=== PATIENT | male | born 1995 | race Caucasian/White ===

== ENCOUNTER 2017-10-02 22:32 | Emergency (ER) | payer MEDICAID ==
[~2017-10-02] VITALS: Ht 165.1 cm; Wt 55.3 kg
[2017-10-03 02:31] VITALS: BP 135/89
== END 2017-10-03 02:32 | disposition home or self-care (01) ==
LOC: ED 22:32
DX: B07.8 Other viral warts (principal); A54.9 Gonococcal infection, unspecified
CPT/HCPCS: 87491; 87591; J0696; J1885; J2001; Q0162

== ENCOUNTER 2017-10-05 00:06 | Emergency (ER) | payer MEDICAID ==
[~2017-10-05] VITALS: Ht 152.4 cm; Wt 55.3 kg
[2017-10-05 00:15] VITALS: Ht 152.4 cm; Wt 55.3 kg
[2017-10-05 01:18] VITALS: BP 133/80
== END 2017-10-05 01:18 | disposition home or self-care (01) ==
LOC: ED 00:06
DX: F45.8 Other somatoform disorders (principal); R00.2 Palpitations

== ENCOUNTER 2017-10-13 12:31 | Emergency (ER) | payer MEDICAID ==
[~2017-10-13] VITALS: Ht 165.1 cm; Wt 54.1 kg
[2017-10-13 12:37] VITALS: Ht 165.1 cm; Wt 54.1 kg
[2017-10-13 14:11] VITALS: BP 120/64
== END 2017-10-13 14:11 | disposition home or self-care (01) ==
LOC: ED 12:31
DX: K62.5 Hemorrhage of anus and rectum (principal); F32.9 Major depressive disorder, single episode, unspecified; F41.8 Other specified anxiety disorders

== ENCOUNTER 2018-07-02 18:57 | Emergency (ER) | payer MEDICAID ==
[~2018-07-02] VITALS: Ht 165.1 cm; Wt 70.8 kg
[2018-07-02 19:53] VITALS: Ht 165.1 cm; Wt 70.8 kg
[2018-07-02 22:54] VITALS: BP 136/81
== END 2018-07-02 22:54 | disposition home or self-care (01) ==
LOC: ED 18:57
PROVIDERS: Emergency Medicine
DX: J11.1 Influenza due to unidentified influenza virus with other respiratory manifestations (principal); F41.9 Anxiety disorder, unspecified; F32.9 Major depressive disorder, single episode, unspecified; F12.90 Cannabis use, unspecified, uncomplicated
CPT/HCPCS: 86694; 87491; 87591; 87804; Q0162

== ENCOUNTER 2018-09-17 17:58 | Emergency (ER) | payer MEDICAID ==
[~2018-09-17] VITALS: Ht 167.6 cm; Wt 71.7 kg
[2018-09-17 18:14] VITALS: Ht 167.6 cm; Wt 71.7 kg
[2018-09-17 20:22] LABS: BASOPHIL % 0.2 % (0-2); PLATELET COUNT 245 x10^3mcL (130-400); RED CELL DISTRIBUTION WIDTH 13.1 % (11.5-14.5)
[2018-09-17 20:31] LABS: CALCIUM 9.4 mg/dL (8.5-10.1); CARBON DIOXIDE 27.6 mmol/L (21-32); CHLORIDE SERUM 102 mmol/L (98-107); CREATININE SERUM 1.2 mg/dL (0.7-1.3); GFR1 > 60 mL/min; GLUCOSE SERUM 97 mg/dL (74-106); POTASSIUM SERUM 3.9 mmol/L (3.5-5.1); SODIUM SERUM 140 mmol/L (136-145)
[2018-09-17 20:36] LABS: ALBUMIN 4.8 g/dL (3.4-5.0); ALKALINE PHOSPHATASE 179 U/L (46-116); ALT/SGPT 30 U/L (16-63); AST/SGOT 20 U/L (15-37); BILIRUBIN TOTAL 0.59 mg/dL (0.20-1.00); TOTAL PROTEIN, SERUM 8.3 g/dL (6.4-8.2)
[2018-09-17 21:27] VITALS: BP 135/84
[2018-09-19 06:08] LABS: RAPID PLASMA REAGIN Non Reactive (Non Reactive)
== END 2018-09-17 21:27 | disposition home or self-care (01) ==
LOC: ED 17:58
PROVIDERS: Emergency Medicine
DX: R51 Headache (principal); F32.9 Major depressive disorder, single episode, unspecified; F41.9 Anxiety disorder, unspecified; F12.90 Cannabis use, unspecified, uncomplicated
CPT/HCPCS: 36415; 87491; 87591

== ENCOUNTER 2019-01-07 15:32 | Emergency (ER) | payer MEDICAID ==
[~2019-01-07] VITALS: Ht 167.6 cm; Wt 72.6 kg
[2019-01-07 15:34] VITALS: Ht 167.6 cm; Wt 72.6 kg
[2019-01-07 16:13] LABS: microscopic required? YES; urine erythrocyte NEGATIVE (NEGATIVE)
[2019-01-07 16:19] LABS: BASOPHIL % 0.3 % (0-2); PLATELET COUNT 302 x10^3mcL (130-400); RED CELL DISTRIBUTION WIDTH 13.5 % (11.5-14.5)
[2019-01-07 16:23] LABS: CALCIUM 8.1 mg/dL (8.5-10.1); CARBON DIOXIDE 23.8 mmol/L (21-32); CHLORIDE SERUM 104 mmol/L (98-107); CREATININE SERUM 1.1 mg/dL (0.7-1.3); GFR1 > 60 mL/min; GLUCOSE SERUM 114 mg/dL (74-106); POTASSIUM SERUM 3.7 mmol/L (3.5-5.1); SODIUM SERUM 139 mmol/L (136-145)
[2019-01-07 16:25] LABS: AMPHETAMINE QUAL UR NONE DETECTED (See below)
[2019-01-07 16:29] LABS: ALBUMIN 4.4 g/dL (3.4-5.0); ALKALINE PHOSPHATASE 139 U/L (46-116); ALT/SGPT 27 U/L (16-63); AST/SGOT 17 U/L (15-37); BILIRUBIN TOTAL 0.44 mg/dL (0.20-1.00); CHOLESTEROL 141 mg/dL (<200); CHOLESTEROL/HDL RATIO 3.1; HDL CHOLESTEROL 45 mg/dL (40-60); TOTAL PROTEIN, SERUM 8.2 g/dL (6.4-8.2); TRIGLYCERIDES 146 mg/dL (<150)
[2019-01-07 18:10] VITALS: BP 132/68
== END 2019-01-07 18:32 | disposition home or self-care (01) ==
LOC: ED 15:32
PROVIDERS: Specialist
DX: S59.912A Unspecified injury of left forearm, initial encounter (principal); M25.512 Pain in left shoulder; F32.9 Major depressive disorder, single episode, unspecified; W86.8XXA Exposure to other electric current, initial encounter; Y93.89 Activity, other specified; Y92.89 Other specified places as the place of occurrence of the external cause; Y99.8 Other external cause status
CPT/HCPCS: J1885; J2405; J7030; Q0092

== ENCOUNTER 2019-01-26 11:20 | Emergency (ER) | payer MEDICAID ==
[~2019-01-26] VITALS: Ht 167.6 cm; Wt 75.3 kg
[2019-01-26 11:23] VITALS: BP 133/82; Ht 167.6 cm; Wt 75.3 kg
[2019-01-26 12:41] LABS: microscopic required? YES; urine erythrocyte NEGATIVE (NEGATIVE)
== END 2019-01-26 12:40 | disposition home or self-care (01) ==
LOC: ED 11:20
PROVIDERS: Specialist
DX: N39.0 Urinary tract infection, site not specified (principal); F32.9 Major depressive disorder, single episode, unspecified; F41.9 Anxiety disorder, unspecified; F12.90 Cannabis use, unspecified, uncomplicated
CPT/HCPCS: 87491; 87591; J0696

== ENCOUNTER 2019-07-13 16:45 | Emergency (ER) | payer OTHER ==
[~2019-07-13] VITALS: Ht 167.6 cm; Wt 69.4 kg
[2019-07-13 16:51] VITALS: Ht 167.6 cm; Wt 69.4 kg
[2019-07-13 18:41] VITALS: BP 139/71
== END 2019-07-13 18:41 | disposition home or self-care (01) ==
LOC: ED 16:45
DX: B34.9 Viral infection, unspecified (principal); R11.10 Vomiting, unspecified; R19.7 Diarrhea, unspecified; F12.90 Cannabis use, unspecified, uncomplicated

== ENCOUNTER 2019-07-23 00:55 | Emergency (ER) | payer OTHER ==
[~2019-07-23] VITALS: Ht 167.6 cm; Wt 68.9 kg
[2019-07-23 01:02] VITALS: Ht 167.6 cm; Wt 68.9 kg
[2019-07-23 05:02] VITALS: BP 130/89
== END 2019-07-23 05:02 | disposition home or self-care (01) ==
LOC: ED 00:55
DX: S00.83XA Contusion of other part of head, initial encounter (principal); B34.9 Viral infection, unspecified; Y04.8XXA Assault by other bodily force, initial encounter; Y93.89 Activity, other specified; Y92.89 Other specified places as the place of occurrence of the external cause; Y99.8 Other external cause status

== ENCOUNTER 2019-09-16 17:44 | Emergency (ER) | payer OTHER, SELFPAY ==
[~2019-09-16] VITALS: Ht 167.6 cm; Wt 73.0 kg
[2019-09-16 17:57] VITALS: Ht 167.6 cm; Wt 73.0 kg
[2019-09-16 19:58] VITALS: BP 130/82
== END 2019-09-16 19:58 | disposition home or self-care (01) ==
LOC: ED 17:44
DX: A60.00 Herpesviral infection of urogenital system, unspecified (principal); Z20.828 Contact with and (suspected) exposure to other viral communicable diseases
CPT/HCPCS: Q0092

== ENCOUNTER 2019-10-19 23:37 | Emergency (ER) | payer OTHER, SELFPAY ==
[~2019-10-19] VITALS: Ht 170.2 cm; Wt 72.8 kg
[2019-10-19 23:41] VITALS: Ht 170.2 cm; Wt 72.8 kg
[2019-10-20 03:01] VITALS: BP 135/71
== END 2019-10-20 03:01 | disposition home or self-care (01) ==
LOC: ED 23:37
DX: R07.89 Other chest pain (principal); R11.0 Nausea; R05 Cough; R06.02 Shortness of breath; R10.13 Epigastric pain; R43.8 Other disturbances of smell and taste; Z20.828 Contact with and (suspected) exposure to other viral communicable diseases
CPT/HCPCS: Q0092; U0003-CS

== ENCOUNTER 2020-06-22 12:18 | Emergency (ER) | payer OTHER, SELFPAY ==
[~2020-06-22] VITALS: Ht 167.6 cm; Wt 79.4 kg
[2020-06-22 12:19] VITALS: Ht 167.6 cm; Wt 79.4 kg
[2020-06-22 14:07] LABS: microscopic required? NO
[2020-06-22 14:19] LABS: urine erythrocyte NEGATIVE (NEGATIVE)
[2020-06-22 14:27] VITALS: BP 135/75
[2020-06-23 05:07] LABS: RAPID PLASMA REAGIN Non Reactive (Non Reactive)
== END 2020-06-22 14:28 | disposition home or self-care (01) ==
LOC: ED 12:18
PROVIDERS: Emergency Medicine
DX: A64 Unspecified sexually transmitted disease (principal); R10.13 Epigastric pain; R11.0 Nausea; R63.0 Anorexia
CPT/HCPCS: 87491; 87591